=== PATIENT | female | born 1975 | race African-American/Black ===

== ENCOUNTER 2020-03-31 13:29 | Emergency (ER) | payer OTHER, SELFPAY ==
--- NOTE | ~2020-03-31 | XR_ITS ---
XR chest 1V portable DATE: 03/31/2020 14:05 INDICATION: Shortness of breath and palpitations TECHNIQUE: Portable upright AP chest on 03/31/2020 at 1358 hours COMPARISON: None FINDINGS: Normal heart size. No hilar or mediastinal enlargement. No pulmonary infiltrate or consolid ation, pleural effusion or pulmonary vascular congestion or pneumothorax. IMPRESSION: No active cardiopulmonary disease Reviewed, dictated and finalized at location A.
[2020-03-31 13:33] VITALS: BP 141/90; PULSE 97; RESP 20; TEMP 36.8; O2SAT 100
--- NOTE | 2020-03-31 13:59 | ECG_ITS ---
Measurements Intervals [place] Rate: 77 P: 35 PA: 155 QRS: 36 QRSD: 91 T: 16 QT: 326 QTc: 370 Interpretive Statements SINUS RHYTHM NORMAL ECG Electronically Signed On 03-31-2020 14:52:43 CDT by Phan Bird D.O.
[2020-03-31 14:00] LABS: Basophils Percent Auto 0.5 % (0.2-1.2); Eosinophils Absolute Auto 0.1 K/mm3 (0-0.3); Eosinophils Percent Auto 1.7 % (0-4.4); Hematocrit 41.4 % (37.0-47.0); Hemoglobin 13.7 g/dL (12.0-15.0); Immature Granulocyte Absolute 0.02 K/mm3 (0.00-0.031); Immature Granulocyte Percent A 0.3 % (0-0.5); Lymphocytes Absolute Auto 2.07 K/mm3 (0.9-3.2); Lymphocytes Percent Auto 32.6 % (18.3-44.2); Mean Corpuscular HGB Conc 33.1 g/dl (32-36); Mean Corpuscular Hemoglobin 30.3 pg (26-34); Mean Corpuscular Volume 91.6 fl (80-100); Mean Platelet Volume 11.2 fl (7.4-10.4); Monocytes Absolute Auto 0.4 K/mm3 (0.1-0.6); Monocytes Percent Auto 6.9 % (2.6-8.5); Neutrophils Absolute Auto 3.7 K/mm3 (1.3-6.7); Platelet Count Result 256 k/mm3 (150-375); Red Blood Count 4.52 M/mm3 (4.2-5.4); Red Cell Distribution Width 13.4 % (11.5-14.5); White Blood Count 6.4 K/mm3 (4.5-10.0)
[2020-03-31] MEDS: SODIUM CHLORIDE 0.9% IV 1,000 ML 999 ML IV CONT (14:04)
[2020-03-31 14:15] LABS: Alanine Aminotransferase 17 U/L (4-35); Albumin Level 4.4 g/dL (3.5-5.1); Alkaline Phosphatase 63 U/L (38-126); Anion Gap 12.6 mmol/L (7-16); Aspartate Amino Transferase 29 U/L (14-36); Bilirubin,Total 0.9 mg/dL (0.2-1.3); Blood Urea Nitrogen 14 mg/dL (7-17); Calcium 9.4 mg/dL (8.4-10.2); Carbon Dioxide 22 mmol/L (22-30); Chloride 106 mmol/L (98-107); Estimated CRCL calculation 105 ml/min; Estimated Glomerular Filt Rate > 60; Glucose 82 mg/dL (65-105); Potassium 4.6 mmol/L (3.4-5.0); Sodium 136 mmol/L (137-145)
[2020-03-31 14:18] LABS: Partial Thromboplastin Time 30.1 SECONDS (22.3-36.8); Prothrombin Time 12.8 Seconds (11.1-14.7)
[2020-03-31 14:22] LABS: D Dimer 0.27 ug/mL (<0.48)
[2020-03-31 14:26] LABS: Troponin I < 0.012 ng/mL (0.000-0.034)
--- NOTE | 2020-03-31 14:26 | ED.ARRPALP ---
HPI - Arrhythmia/Palpitations General Chief Complaint: Arrhythmia/Palpitations <DEMETRI June Last Filed: 03/31/20 15:21> Stated Complaint: sob/elevated heart rate/palpitations/pleurisy <DEMETRI June Last Filed: 03/31/20 15:21> Time Seen by Provider: 03/31/20 13:50 <DEMETRI June Last Filed: 03/31/20 15:21> Source: patient <DEMETRI June Last Filed: 03/31/20 15:21> Mode of arrival: ambulatory <DEMETRI June Last Filed: 03/31/20 15:21> Limitations: no limitations <DEMETRI June Last Filed: 03/31/20 15:21> History of Present Illness HPI narrative: Patient is a 44-year-old female who presents to emergency department for evaluation of palpitations and midsternal chest pain that have been going on now for over a month patient notes that she had had what was likely COVID with negative tests which they believed to have been false negative patient notes this was in December notes since then she has been having intermittent palpitations and chest discomfort worse with activity movement and breathing. Patient has been seen for this complaint and had negative testing. Patient has not taken anything for her symptoms. Patient denies any fever chills nausea vomiting or other complaints and is resting comfortably in the room in no distress <DEMETRI June Last Filed: 03/31/20 15:21> Related Data Home Medications: Home Medications Medication Instructions Recorded Confirmed No Home Medications 03/31/20 03/31/20 <DEMETRI June Last Filed: 03/31/20 15:21> Allergies/Adverse Reactions: Allergies Allergy/AdvReac Type Severity Reaction Status Date / Time No Known Allergies Allergy Verified 03/31/20 13:40 <DEMETRI June Last Filed: 03/31/20 15:21> Review of Systems Review of Systems: All systems reviewed & are unremarkable except as noted in HPI and below <DEMETRI June Last Filed: 03/31/20 15:21> [facility] Social History Social History: Social History (Updated 07/26/20 @ 14:28 by Jevon Robb PA-C) Smoking status: Never smoker Gender identity (if verbalized by the patient): Female <Jevon Robb PA-C - Last Filed: 03/31/20 15:21> Exam Narrative: Exam Narrative: GENERAL: Well-appearing, well-nourished, and in no acute distress. HEAD: Normocephalic, atraumatic. EYES: PERRLA and EOMI. ENT: Nares clear, no rhinorrhea or epistaxis. Mucous membranes moist. Oropharynx without tonsillar hypertrophy exudate or other lesions. CHEST: Clear to auscultation. No respiratory distress. No wheezes rales or rhonchi HEART: Regular rate and rhythm. No murmur heard. Normal peripheral pulses. ABDOMEN: Soft, nontender, nondistended EXTREMITIES: Normal range of motion. No edema. SKIN: Warm, dry, no rash. NEURO: No focal deficits. Alert and oriented x3. Cranial nerves II through XII grossly intact PSYCH: Normal mood and affect. <Jevon Robb PA-C - Last Filed: 03/31/20 15:21> Course Course Emergency Course: Patient in the room aware of case findings treatment plan and diagnosis agreeing to follow-up as directed or to return if symptoms worsen or concerns. Patient without high risk changes in the findings felt appropriate for primary care follow-up <Jevon Robb PA-C - Last Filed: 03/31/20 15:21> Vital Signs Vital signs: Vital Signs Temperature 98.2 F 03/31/20 13:33 Pulse Rate 97 03/31/20 13:33 Respiratory Rate 20 03/31/20 13:33 Blood Pressure 141/90 H 03/31/20 13:33 Pulse Oximetry 100 03/31/20 13:33 Temperature 98.3 F 03/31/20 15:38 Pulse Rate 73 03/31/20 15:38 Respiratory Rate 18 03/31/20 15:38 Blood Pressure 136/90 03/31/20 15:38 Pulse Oximetry 97 03/31/20 15:38 <Jevon Robb PA-C - Last Filed: 03/31/20 15:21> Vital Signs Temperature 98.2 F 03/31/20 13:33 Pulse Rate 97 03/31/20
[2020-03-31 14:29] VITALS: BP 132/102; PULSE 78; RESP 16; O2SAT 100
[2020-03-31 15:38] VITALS: BP 136/90; PULSE 73; RESP 18; TEMP 36.8; O2SAT 97
[2020-03-31 15:46] LABS: Add Urine Microscopic? YES; Appearance Urine Clear (Clear); Bilirubin Urine Negative (Negative); Blood Urine Negative (Negative); Color Urine Yellow (Yellow); Glucose Urine UA Negative (Negative); Ketones Urine Negative (Negative); Leukocyte Esterase Ur Negative LEU/UL (Negative); Mucus Urine Few /lpf; Nitrate Urine Negative (Negative); Protein Urine Negative (Negative); Specific Grav Ur 1.021 (1.001-1.035); Squamous Epithelial Cell Urine Occasional /hpf (Few); Urobilinogen Urine Negative mg/dL (<2.0); WBC Urine 0-3 /hpf
== END 2020-03-31 15:39 | disposition home or self-care (01) ==
PROVIDERS: Emergency Medicine Emergency Medical Services; Emergency Provider General Practice; PCP Internal Medicine
DX: R00.2 Palpitations (principal)
CPT/HCPCS: 36415; 71045; 80053; 81001; 84484; 85025; 85380; 85610; 85730; 93005; 96360; 99284; J7030

== ENCOUNTER 2020-12-16 18:19 | Emergency (ER) | payer BC, OTHER, SELFPAY ==
[2020-12-16] VITALS (19 sets, daily range): BP systolic 139–176; BP diastolic 90–120; PULSE 82–87; RESP 16–18; TEMP 35.3; O2SAT 98–100
--- NOTE | ~2020-12-16 | XR_ITS ---
XR chest 2V DATE: 12/16/2020 19:18 INDICATION: Shortness of breath. Dizziness. Hypertension. TECHNIQUE: PA and lateral views COMPARISON: 03/31/2020 portable FINDINGS: Normal heart size. Mild aortic unfolding. No hilar or mediastinal enlargement. No pulmonary infiltrate or consolidation, pleural effusion or pulmonary vascular congestion or pneumothorax. IMPRESSION: No active cardiopulmonary disease Reviewed, dictated and finalized at location A.
--- NOTE | 2020-12-16 18:58 | ECG_ITS ---
Measurements Intervals [place] Rate: 83 P: 37 VA: 167 QRS: 18 QRSD: 82 T: 21 QT: 333 QTc: 392 Interpretive Statements SINUS RHYTHM BASELINE ARTIFACT- I, II, AVR NORMAL ECG Electronically Signed On 12-17-2020 8:02:17 CDT by Phan Bird D.O.
[2020-12-16 19:09] LABS: Basophils Percent Auto 0.3 % (0.2-1.2); Eosinophils Absolute Auto 0.1 K/mm3 (0-0.3); Eosinophils Percent Auto 1.8 % (0-4.4); Hematocrit 40.3 % (37.0-47.0); Hemoglobin 13.4 g/dL (12.0-15.0); Immature Granulocyte Absolute 0.01 K/mm3 (0.00-0.031); Immature Granulocyte Percent A 0.2 % (0-0.5); Lymphocytes Absolute Auto 2.16 K/mm3 (0.9-3.2); Lymphocytes Percent Auto 35.4 % (18.3-44.2); Mean Corpuscular HGB Conc 33.3 g/dl (32-36); Mean Corpuscular Hemoglobin 30.3 pg (26-34); Mean Corpuscular Volume 91.2 fl (80-100); Mean Platelet Volume 10.6 fl (7.4-10.4); Monocytes Absolute Auto 0.5 K/mm3 (0.1-0.6); Monocytes Percent Auto 8.5 % (2.6-8.5); Neutrophils Absolute Auto 3.3 K/mm3 (1.3-6.7); Neutrophils Percent Auto 53.8 % (45.5-73.1); Platelet Count Result 256 k/mm3 (150-375); Red Blood Count 4.42 M/mm3 (4.2-5.4); Red Cell Distribution Width 13.6 % (11.5-14.5); White Blood Count 6.1 K/mm3 (4.5-10.0)
[2020-12-16 19:33] LABS: Anion Gap 4 mmol/L (8-16); Blood Urea Nitrogen 13 mg/dL (7-17); Calcium 9.2 mg/dL (8.4-10.2); Carbon Dioxide 28 mmol/L (22-30); Chloride 107 mmol/L (98-107); Estimated CRCL calculation 93 ml/min; Estimated Glomerular Filt Rate > 60; Glucose 88 mg/dL (65-105); Sodium 139 mmol/L (137-145)
--- NOTE | 2020-12-16 21:25 | ED.GENADULT ---
HPI - General Adult General Chief complaint: Headache Stated complaint: High Blood Pressure Time Seen by Provider: 12/16/20 21:19 Source: patient History of Present Illness HPI narrative: Patient is a 45 y/o female complaining of generalized headache starting 2-3 days ago. She describes her headache as sharp and rates it as 7/10. She took Tylenol which did not help. She has no nausea, vomiting, focal weakness or numbness. She went to work today, had her BP checked at work and was told that it was high. Related Data Allergies Allergy/AdvReac Type Severity Reaction Status Date / Time No Known Allergies Allergy Verified 03/31/20 13:40 Review of Systems Constitutional: Constitutional: Denies chills, Denies fever(s), Reports headache(s) and Denies weakness Eyes: Eyes: Denies blurry vision ENT: Reports headache(s) and Denies neck pain Cardiovascular: Cardiovascular: Denies chest pain and Denies dyspnea Respiratory: Respiratory: Denies cough and Denies dyspnea Gastrointestinal: Gastrointestinal: Denies abdominal pain, Denies diarrhea, Denies nausea and Denies vomiting Genitourinary: Genitourinary: Denies hematuria and Denies dysuria Musculoskeletal: Musculoskeletal: Denies back pain and Denies neck pain Neurologic: Reports headache(s) and Denies weakness [facility] Social History Social History Smoking status: Never smoker Gender identity (if verbalized by the patient): Female Exam Const: General: no acute distress and well developed Orientation/consciousness: oriented to person, oriented to place, oriented to time and patient oriented x3 HENMT: Head: normocephalic Ears: external ears normal General nose exam: Normal external nose present Eyes: General: appearance normal, both eyes and all related structures Conjunctivae: conjunctivae normal Neck: Neck: normal visual inspection and full ROM Chest: Chest palpation & inspection: normal inspection of the chest and no tenderness Resp: Effort & Inspection: normal respiratory effort Auscultation: clear to auscultation bilaterally Cardio: Rate: regular rate Rhythm: regular rhythm GI: GI Palp: No abdominal tenderness and Yes Soft to palpation Skin: General skin exam: normal color and turgor normal Neuro: General: oriented to person, oriented to place, oriented to time and patient oriented x3 Cranial nerves: Yes CN's II-XII intact bilaterally Cognition (Neuro): normal cognition Speech: normal speech Motor exam (neuro): 5/5 motor strength present throughout Sensory Exam: normal sensation Coordination: [id number] test normal and [id number] test normal Extrem: General: normal to inspection, full ROM and no pedal edema Psych: Appearance: grossly normal Mental Status: mental status grossly normal Affect: normal affect Course Reevaluation(s) Reevaluation #1: Rechecked. Patient feels well. She has no headache at this time. Date: 12/17/20 Time: 00:37 Vital Signs Vital signs: Vital Signs Temperature 35.3 C L 12/16/20 18:54 Pulse Rate 87 12/16/20 18:54 Respiratory Rate 16 12/16/20 18:54 Blood Pressure 176/120 H 12/16/20 18:54 Pulse Oximetry 100 12/16/20 18:54 Temperature 35.3 C L 12/16/20 18:54 Pulse Rate 76 12/17/20 00:50 Respiratory Rate 16 12/17/20 00:50 Blood Pressure 128/88 12/17/20 00:50 Pulse Oximetry 100 12/17/20 00:50 Medical Decision Making Vital Signs Vital Signs: Vital Signs Temperature 35.3 C L 12/16/20 18:54 Pulse Rate 87 12/16/20 18:54 Respiratory Rate 16 12/16/20 18:54 Blood Pressure 176/120 H 12/16/20 18:54 Pulse Oximetry 100 12/16/20 18:54 Temperature 35.3 C L 12/16/20 18:54 Pulse Rate 76 12/17/20 00:50 Respiratory Rate 16 12/17/20 00:50 Blood Pressure 128/88 12/17/20 00:50 Pulse Oximetry 100 12/17/20 00:50 Lab Data Result diagrams: 12/16/20 19:03 12/16/20 19:03 Labs: Lab
[2020-12-16 21:49] LABS: Add Urine Microscopic? NO; Appearance Urine Clear (Clear); Bilirubin Urine Negative (Negative); Blood Urine Negative (Negative); Color Urine Yellow (Yellow); Glucose Urine UA Negative (Negative); Ketones Urine Negative (Negative); Leukocyte Esterase Ur Negative LEU/UL (Negative); Nitrate Urine Negative (Negative); Protein Urine Negative (Negative); Specific Grav Ur 1.015 (1.001-1.035); Urobilinogen Urine Negative mg/dL (<2.0)
[2020-12-16] MEDS: lisinopriL 20 MG TABLET PO (21:57)
[2020-12-16] MEDS: hydroCHLOROthiazide 25 MG TABLET PO (21:57)
[2020-12-16] MEDS: METOCLOPRAMIDE HCL INJ 10 MG/2 ML VIAL IV PUSH (21:59)
[2020-12-16] MEDS: KETOROLAC 30 MG/ML VIAL (*BKC) IV PUSH (21:59)
[2020-12-16] MEDS: diphenhydrAMINE HCl INJ 50 MG/ML VIAL 25 MG IV PUSH (21:59)
[2020-12-16] MEDS: amLODIPine BESYLATE 5 MG TABLET 10 MG PO (23:43)
[2020-12-17] VITALS: O2SAT 98
[2020-12-17 00:01] VITALS: BP 135/92; O2SAT 98
[2020-12-17 00:15] VITALS: BP 135/92
[2020-12-17 00:18] VITALS: BP 134/90; PULSE 87; RESP 16; O2SAT 99
[2020-12-17 00:50] VITALS: BP 128/88; PULSE 76; RESP 16; O2SAT 100
== END 2020-12-17 00:50 | disposition home or self-care (01) ==
PROVIDERS: Emergency Medicine; Emergency Provider Emergency Medicine; PCP Internal Medicine
DX: R51.9 Headache, unspecified (principal); I10 Essential (primary) hypertension
CPT/HCPCS: 36415; 71046; 80048; 81003; 81025; 85025; 93005; 96374; 96375; 99284; A9270; J1200; J1885; J2765

== ENCOUNTER 2024-07-12 14:11 | Emergency (ER) | payer BC, SELFPAY ==
[2024-07-12] VITALS (7 sets, daily range): BP systolic 136–185; BP diastolic 85–114; PULSE 74–106; RESP 14–20; TEMP 36.4–36.7; O2SAT 97–100
--- NOTE | ~2024-07-12 | XR_ITS ---
EXAMINATION: XR chest 2V DATE: 07/12/2024 14:41 INDICATION: Chest pain. TECHNIQUE: Frontal and lateral views of the chest were obtained. COMPARISON: Chest 2 views 12/16/2020 FINDINGS: There is no pneumonia, pleural effusion, or pneumothorax. The heart size is normal. There i s mild chronic height loss of multiple upper thoracic vertebral bodies. IMPRESSION: 1. No acute cardiopulmonary disease. Reviewed, dictated and finalized at location A. NCIAL AID ADVISOR
--- NOTE | 2024-07-12 14:12 | ECG_ITS ---
Test Date: 2024-07-12 14:24:21 Measurements Intervals [place] Rate: 101 P: 54 MO: 162 QRS: 42 QRSD: 86 T: 35 QT: 311 QTc: 403 Interpretive Statements SINUS TACHYCARDIA BASELINE ARTIFACT- I, II, III, AVR, AVL, AVF BORDERLINE ECG No previous ECG available for comparison Electronically Signed On 07-12-2024 14:32:15 [employer] by Phan Bird D.O.
[2024-07-12 14:46] LABS: Basophils Percent Auto 0.5 % (0.2-1.2); Eosinophils Absolute Auto 0.1 K/mm3 (0-0.3); Eosinophils Percent Auto 1.4 % (0-4.4); Hematocrit 38.9 % (37.0-47.0); Hemoglobin 13.2 g/dL (12.0-15.0); Immature Granulocyte Absolute 0.02 K/mm3 (0.00-0.031); Immature Granulocyte Percent A 0.4 % (0-0.5); Lymphocytes Absolute Auto 1.65 K/mm3 (0.9-3.2); Lymphocytes Percent Auto 29.6 % (18.3-44.2); Mean Corpuscular HGB Conc 33.9 g/dl (32-36); Mean Corpuscular Hemoglobin 31.1 pg (26-34); Mean Corpuscular Volume 91.7 fl (80-100); Mean Platelet Volume 11.1 fl (7.4-10.4); Monocytes Absolute Auto 0.4 K/mm3 (0.1-0.6); Monocytes Percent Auto 7.2 % (2.6-8.5); Neutrophils Absolute Auto 3.4 K/mm3 (1.3-6.7); Neutrophils Percent Auto 60.9 % (45.5-73.1); Platelet Count Result 268 k/mm3 (150-375); Red Blood Count 4.24 M/mm3 (4.2-5.4); Red Cell Distribution Width 13.5 % (11.5-14.5); White Blood Count 5.6 K/mm3 (4.5-10.0)
--- NOTE | 2024-07-12 14:55 | ED_ITS ---
HPI - Chest Pain General Chief Complaint: Chest Pain Stated Complaint: CP, elevated BP readings Time Seen by Provider: 07/12/24 14:18 Source: patient Mode of arrival: ambulatory Limitations: no limitations History of Present Illness HPI narrative: Patient presents with chest pain this has going on for few days. She is also having palpitations feeling like she has a rapid heartbeat. He symptoms are worse when she is bending over or lying down. She has had subjective edema in her feet but not her legs attributes this to a occurring when she stands for long periods. She denies any cardiac or respiratory history. Does not follow with a general assistant. Reportedly took 324 mg aspirin prior to arrival. She st ates the pain radiates to her back. She has been short of breath. Denies any nausea or vomiting does states that it feels like something is in her throat. The pain had been intermittent but has become constant today. She denies any fevers or chills or cough. She has been dizzy. She had only had symptoms of palpitations back in 2021 when she had COVID. She denies any diaphoresis during episodes although she then states that she has had increased sweating. Her primary care physician is Dr. Angel Arnold through [facility]. She had recently been diagnosed with hypertension and had been started on a low dose 5 mg of a medication that starts with a (presumably amlodipine and confirmed per EMR). She states that this had been helping her blood pressure as would have been checked it was in the 120s or 130s systolic. No prior history of hyperlipidemia, diabetes mellitus. She is a nonsmoker. No personal history of myocardial infarction, TIA, CVA. No family history in first-degree relative before the age of 65. Related Data Allergies Allergy/AdvReac Type Severity Reaction Status Date / Time No Known Allergies Allergy Verified 03/31/20 13:40 [facility] Past Medical History Medical History Hypertension Social History Social History Smoking status: Never smoker Gender identity (if verbalized by the patient): Female Exam Narrative: GENERAL: Well-appearing, well-nourished, and in no acute distress. HEAD: Normocephalic, atraumatic. EYES: Non injected, non icteric ENT: Nares clear, no rhinorrhea or epistaxis. NECK: Supple. CHEST: Speaking in full sentences. No respiratory distress. Lungs clear to auscultation bilaterally without wheezes or crackles. HEART: Regular rate and rhythm. . ABDOMEN: Soft, nondistended. EXTREMITIES: Normal range of motion. No bilateral lower extremity edema. SKIN: Warm, dry, no rash. NEURO: No focal deficits. Alert and oriented x3. PSYCH: Normal mood and affect. Course Vital Signs Vital signs: Vital Signs Temperature 97.6 F 07/12/24 14:12 Pulse Rate 106 H 07/12/24 14:12 Respiratory Rate 18 07/12/24 14:12 Blood Pressure 185/105 H 07/12/24 14:12 Pulse Oximetry 100 07/12/24 14:12 Oxygen Delivery Room Air 07/12/24 14:12 Temperature 98.1 F 07/12/24 18:41 Pulse Rate 97 07/12/24 18:41 Respiratory Rate 20 07/12/24 18:41 Blood Pressure 136/94 H 07/12/24 18:41 Pulse Oximetry 100 07/12/24 18:41 Oxygen Delivery Room Air 07/12/24 14:22 MDM - Chest Pain MDM Narrative Medical decision making narrative: Patient presents with chest pain and palpitations as well as elevated blood pressure. She had been started on a low-dose of an antihypertensive and with this had previously been controlled. In the emergency department she is afebrile with vital signs notable for tachycardia and hypertension. HEART SCORE History 2 highly suspicious 1 moderately suspicious 0 slightly suspicious History score [address] depression/elevation not due to LBBB, LVH, or digoxin [address] depression but LBBB, LVH, nonspecific repolarization changes 0 normal ECG score 0 Age 2 >/= 65 1 45-64 0 <45 Age score 1 Risk factors (HTN, hypercholesterolemia, DM, obesity with BMI >30, current smoker or cessation </=3mo), positive fam hx with parent or sibling with CVD before age 65, atherosclerotic disease (prior [place], PCI/CABG, CVA/TIA, or perip heral arterial disease) 2 >/= 3 risk factors or history of atherosclerotic dz 1 - 1-2 risk factors 0 no known risk factors Risk factor score 1 (hypertension, obesity) Initial Troponin 2 >3 times normal limit 1 1-3 times normal limit 0 less than or equal to normal limit Troponin score 0 Total HEART Score 2 D-dimer within normal limits thus will defer pursuing further imaging. Patient is reassessed just after her 3 hour troponin been drawn. She does state that she is feeling better. Have not captured any significant arrhythmias during cardiac monitoring frequent assessments. Stable for discharge. We did discuss that reasonable to trial a GI medication but that the outpatient follow up with cardiology was still recommended. Provided cardiology referral contact information. Differential Diagnosis Differential diagnosis: Likely stable angina, unstable angina pectoris, atypical chest pain, st elevation myocardial infarction, chest pain, biliary colic and other (GERD; palpitations/SVT/PVCs/WPW/PVCs; anxiety; aortic dissection; PE; ACS; PE; ) Lab Data Attestation: I reviewed the patient's lab results. 07/12/24 14:26 07/12/24 14:26 Labs: Lab Results 07/12/24 07/12/24 Range/Units 14:26 17:41 WBC 5.6 (4.5-10.0) K/mm3 RBC 4.24 (4.2-5.4) M/mm3 Hgb 13.2 (12.0-15.0) g/dL Hct 38.9 (37.0-47.0) % MCV 91.7 (80-100) fl MCH 31.1 (26-34) pg MCHC 33.9 (32-36) g/dl RDW 13.5 (11.5-14.5) % Plt Count 268 (150-375) k/mm3 MPV 11.1 H (7.4-10.4) fl Immature Gran % (Auto) 0.4 (0-0.5) % Neut % (Auto) 60.9 (45.5-73.1) % Lymph % (Auto) 29.6 (18.3-44.2) % [place] % (Auto) 7.2 (2.6-8.5) % Eos % (Auto) 1.4 (0-4.4) % Baso % (Auto) 0.5 (0.2-1.2) % Lymph # (Auto) 1.65 (0.9-3.2) K/mm3 [place] # (Auto) 0.4 (0.1-0.6) K/mm3 Eos # (Auto) 0.1 (0-0.3) K/mm3 Baso # (Auto) 0.0 (0.0-0.1) K/mm3 Abs Immat Gran (auto) 0.02 (0.00-0.031) K/mm3 Absolute Neuts (auto) 3.4 (1.3-6.7) K/mm3 Absolute Nucleated RBC 0.000 (0.0-0.012) K/mm3 Nucleated RBC % 0.0 (0.0-0.2) % PT 13.3 (11.1-14.7) Seconds INR 1.0 APTT 30.1 (22.3-36.8) Seconds D-Dimer 0.27 (<0.48) ug/mL Sodium 138 (137-145) mmol/L Potassium 3.7 (3.4-5.0) mmol/L Chloride 106 (98-107) mmol/L Carbon Dioxide 22 (22-30) mmol/L Anion Gap 10 (4-12) mmol/L BUN 13 (7-17) mg/dL Creatinine 0.80 (0.7-1.0) mg/dL Estim Creat Clear Calc 85 ml/min Estimated GFR > 60 (59 - ) Glucose 90 (65-110) mg/dL Calcium 9.5 (8.4-10.2) mg/dL Total Bilirubin 0.6 (0.2-1.3) mg/dL AST 22 (14-36) U/L ALT 17 (6-35) U/L Alkaline Phosphatase 72 (38-126) U/L Troponin I < 0.012 < 0.012 (0.000-0.034) ng/mL Total Protein 8.0 (6.3-8.2) g/dL Albumin 4.6 (3.5-5.1) g/dL Lipase 71 (23-300) U/L Imaging Data Radiologist's impression: Impressions Chest X-Ray 07/12/24 14:47 IMPRESSION: 1. No acute cardiopulmonary disease. ECG Data EKG #1: Attestation: I personally reviewed and interpreted this ECG as follows: ECG completion date: 07/12/24 ECG completion time: 14:24 Interpretation: Sinus tachycardia at a rate of 101 beats per minute. CA interval 162. QRS 86. QT/QTC 311/369. Good R-wave progression across the precordial leads. T-wave inversion/flattening isolated to lead 3 but otherwise upright in normal in contiguous inferior leads 2 and AVF and no other T-wave inversions. EKG #2: Attestation: I personally reviewed and interpreted this ECG as follows: ECG completion date: 07/12/24 ECG completion time: 17:08 Interpretation: Normal sinus rhythm at a rate of 93 beats per minute. CA interval 172. QRS 85. QT/QTC 339/390. Good R-wave progression across the precordial leads. T-wave inversion isolated to lead 3 but otherwise upright in normal in contiguous inferior leads. No other T-wave inversions. Discharge Plan Discharge Clinical Impression: Hypertension, Chest pain Patient Disposition: Home, Self-Care Condition: Stable Instructions: Antibiotic Form, Chest Pain (ED), Hypertension (ED) Additional Instructions: As we discussed, the cause of your symptoms is unclear. Your otherwise low risk so the next step is to follow-up with a general assistant in the outpatient setting. The Name of 1 is provided below as a referral. Continue to keep a log of your blood pressures and take this to a follow-up patient with your primary care physician Dr. Aronld to determine if you need an increase in her blood pressure medication or change to a different medication etc. Return to the emergency department with any new or worsening symptoms. You can try taking the prescribed medications though I do still recommend following up with cardiology, either the physician listed below of an alternative general assistant if your primary care physician has another referral. Prescriptions: New famotidine 20 mg tablet 20 mg PO DAILY Qty: 30 0RF acetaminophen 500 mg capsule 1,000 mg PO Q6H PRN (Reason: pain) Qty: 30 0RF No Action lisinopril-hydrochlorothiazide [Zestoretic] 20-25 mg tablet 1 tablet PO DAILY Qty: 30 0RF amlodipine [Norvasc] 5 mg tablet 5 mg PO DAILY Qty: 30 0RF Follow-up/Referrals: Clayton,Angel Bell MD [Primary Care Provider] - Bridget Zacarias DO [Physician] - (cardiology) Stand Alone Forms: Work/School Release IP Time of Disposition: 18:15
[2024-07-12 14:58] LABS: Partial Thromboplastin Time 30.1 Seconds (22.3-36.8); Prothrombin Time 13.3 Seconds (11.1-14.7)
[2024-07-12 15:00] LABS: Alanine Aminotransferase 17 U/L (6-35); Albumin Level 4.6 g/dL (3.5-5.1); Alkaline Phosphatase 72 U/L (38-126); Anion Gap 10 mmol/L (4-12); Aspartate Amino Transferase 22 U/L (14-36); Bilirubin,Total 0.6 mg/dL (0.2-1.3); Blood Urea Nitrogen 13 mg/dL (7-17); Calcium 9.5 mg/dL (8.4-10.2); Carbon Dioxide 22 mmol/L (22-30); Chloride 106 mmol/L (98-107); Estimated CRCL calculation 85 ml/min; Estimated Glomerular Filt Rate > 60; Glucose 90 mg/dL (65-110); Lipase 71 U/L (23-300); Potassium 3.7 mmol/L (3.4-5.0); Sodium 138 mmol/L (137-145)
[2024-07-12 15:09] LABS: Troponin I < 0.012 ng/mL (0.000-0.034)
[2024-07-12] MEDS: FAMOTIDINE 20 MG/2 ML VIAL IV PUSH (15:17)
[2024-07-12 15:51] LABS: D Dimer 0.27 ug/mL (<0.48)
--- NOTE | 2024-07-12 17:06 | ECG_ITS ---
Test Date: 2024-07-12 17:08:43 Measurements Intervals [place] Rate: 93 P: 21 TN: 172 QRS: -4 QRSD: 85 T: 14 QT: 339 QTc: 424 Interpretive Statements SINUS RHYTHM BASELINE ARTIFACT- I, II, III, AVR, AVL, AVF, V1-V2 NORMAL ECG Compared to ECG 07/12/2024 14:24:21 Sinus tachycardia no longer present Electronically Signed On 07-12-2024 18:36:31 [employer]TER by Phan Bird D.O.
[2024-07-12] MEDS: ACETAMINOPHEN 500 MG TABLET 1000 MG PO (17:24)
[2024-07-12 18:08] LABS: Troponin I < 0.012 ng/mL (0.000-0.034)
== END 2024-07-12 19:07 | disposition home or self-care (01) ==
PROVIDERS: Emergency Provider Student in an Organized Health Care Education/Training Program; PCP Internal Medicine
DX: I10 Essential (primary) hypertension (principal); R07.9 Chest pain, unspecified
CPT/HCPCS: 36415; 71046; 80053; 83690; 84484; 85025; 85380; 85610; 85730; 93005; 96374; 99284; A9270